=== PATIENT | male | born 1955 | race Caucasian/White ===

== ENCOUNTER → 2016-06-24 | Outpatient (CLI) | payer OTHER | END | disposition home or self-care (01) | CPT/HCPCS: 94060; 94726; 94729 ==

== ENCOUNTER → 2019-02-22 | Outpatient (CLI) | payer OTHER ==
--- NOTE | 2019-02-22 23:33 | CONS ---
CONSULTATION REASON FOR CONSULTATION: Sleep apnea. This is a 64-year-old morbidly obese male patient who works at [employer]; he does mainly computer work. Recently he has felt very tired and sleepy, to the point where he is having a hard time keeping himself awake and he is having some occasional sleep attacks. Based on all this, he came in for a sleep apnea evaluation. His sleep is fragmented. He has rheumatoid arthritis and chronic pain and arthralgia and he has also chronic dysthymia. In terms of his RA, he takes a combination of gabapentin and methotrexate, and for his dysthymia he takes Effexor 75 mg p.o. daily. He has gained a significant amount of weight over the years and he has features of obstructive sleep apnea, as the patient snores and his sleep is fragmented and he is occasionally waking up for choking and gasping sensation. He sleeps with his dogs. His has moved herself outside to another bedroom. He wakes up tired during the day. He falls asleep during the day. He has problems with memory and concentration. He goes to bed between 10 and 11 p.m. and wakes up between 5 and 5:30 a.m. in the morning. On weekends he wakes up at 7:00 in the morning. No restlessness in his lower extremities. PAST MEDICAL HISTORY: 1. Obesity. 2. RA. 3. Hypertension. 4. Dysthymia. PAST SURGICAL HISTORY: Past surgical history includes cholecystectomy and upper and lower GI endoscopy. DRUG ALLERGIES: NOT KNOWN. OUTPATIENT MEDICATION LIST: Outpatient medication list includes: 1. Effexor 75 mg p.o. daily. 2. Enalapril 10 mg p.o. daily. 3. Folic acid 1 tablet a day. 4. Methotrexate injections and gabapentin 2 capsules once a day; the dose is not known. SOCIAL HISTORY: The patient is a cigar smoker. He smokes around 40 cigars a week. No history of alcoholism. No history of IV drugs. FAMILY HISTORY: Positive for diabetes, coronary artery disease and CVA. Almost half of his family have cardiac disease; the other half has CVA. Diabetes throughout the majority of his family members. No history of any sleep breathing disorder or sleep apnea in the family. REVIEW OF SYSTEMS: Fourteen-point review of systems was done. Positive findings were all mentioned above in the history of present illness. He is snoring for now. No insomnia. No reported falling asleep while driving his car; however, he drives only short distances. There is positive history of weight gain on the order of 75 pounds over the past 10 years. He sleeps on his stomach. He takes naps any time he has a chance to do so. He takes typically around 3-4 naps a day, especially on weekends. No chest pain. No shortness of breath. No cough or sputum production. Chronic arthralgias. He has sexual dysfunction. PHYSICAL EXAMINATION: VITAL SIGNS: BP is 168/95, pulse 80, respirations 16, temperature 98.1, saturation 97% on room air. Neck size is inches. Height is 5 feet 7 inches. Weight is 358. BMI is 56. GENERAL APPEARANCE: Calm, comfortable. HEAD: Atraumatic, normocephalic. NECK: Supple. Short. There is crowding of the posterior pharynx. Mallampati class IV. No goiter or neck masses. LUNGS: Clear to auscultation. HEART: Heart sounds are regular rate and rhythm. Normal S1, S2. No S3, S4. No murmurs. ABDOMEN: Soft, nontender. No organomegaly. EXTREMITIES: No edema. No cyanosis or clubbing. NEUROLOGIC: Alert and oriented x3. No focal neurological deficits. PSYCHIATRIC: History of depression/dysthymia. IMPRESSION: 1. Chronic hypersomnia; Skandia score of 13 with high suspicion for obstructive sleep apnea. 2. Loud snoring. 3. Witnessed apneas. 4. Sleep fragmentation. 5. Rheumatoid arthritis. 6. Chronic pain. 7. Chronic dysthymic, on Effexor. 8. Hypertension. PLAN: 1. Encourage weight loss. 2. Optimize sleep hygiene measures. 3. Refrain from driving long distances, especially when feeling drowsy or sleepy. 4. Proceed with a screening polysomnogram to assess sleep quality and look for any significant sleep breathing disorder that may need to be treated. Will continue to follow. MMODL / IJN: [id number] /
== END | disposition home or self-care (01) ==
LOC: SLEEP 15:25
PROVIDERS: ATTEND Internal Medicine Critical Care Medicine
DX: G47.10 Hypersomnia, unspecified (principal); M06.9 Rheumatoid arthritis, unspecified; G89.29 Other chronic pain; F34.1 Dysthymic disorder; I10 Essential (primary) hypertension; Z79.899 Other long term (current) drug therapy
CPT/HCPCS: 99211

== ENCOUNTER → 2019-11-03 | Outpatient (CLI) | payer OTHER ==
--- NOTE | 2019-11-03 15:13 | XR ---
EXAMINATION TYPE: XR knee complete RT DATE OF EXAM: 11/03/2019 CLINICAL HISTORY: Pain after injury. TECHNIQUE: Three views of the right knee are obtained. COMPARISON: None. FINDINGS: There is no acute fracture/dislocation evident in right knee. Mild tricompartment joint sp nick loss. Increased density suprapatellar bursa suspicious for small joint effusion. IMPRESSION: There is no acute fracture or dislocation in the right knee.
== END | disposition home or self-care (01) ==
LOC: RADXRMAIN 14:49
PROVIDERS: ATTEND Family Medicine
DX: S89.91XA Unspecified injury of right lower leg, initial encounter (principal)

== ENCOUNTER → 2019-11-29 | Outpatient (CLI) | payer OTHER ==
--- NOTE | 2019-11-30 07:38 | MR ---
EXAMINATION TYPE: MR knee RT wo con DATE OF EXAM: 11/29/2019 COMPARISON: X-ray 11/18/2019 HISTORY: Right knee pain, twisting injury TECHNIQUE: Multiplanar, multisequence imaging of the right knee is performed without IV contrast. FINDINGS: Exam limited by artifact. MEDIAL MENISCUS: There is a complex tear involving the posterior horn of the medial meniscus. LATERAL MENISCUS: Anterior and posterior horns are intact without tear. CRUCIATE LIGAMENTS: The anterior and posterior cruciate ligaments are intact and unremarkable. COLLATERAL LIGAMENTS: There is edema surrounding the MCL compatible with strain. No through thickness tear. Lateral collateral ligament intact. EXTENSOR MECHANISM: Visualized quadriceps and patellar tendons are intact. Trace amount fluid in the suprapatellar bursa. EFFUSION: No significant suprapatellar joint effusion. POPLITEAL CYST: No popliteal/raymond cyst. TRICOMPARTMENT SPACES: There is narrowing of the medial compartment of the knee joint without evidenc e of erosive change. Grade II chondromalacia noted of the articular cartilage. BONE MARROW SIGNAL: Large area of abnormal marrow edema involving the distal femur medially measuring 5 cm. There is a flattening of the articular medial femoral condyle with a linear line suspicious fo r a osteochondral defect and macrotrabecular fracture. No free fragment. OTHER: There is diffuse subcutaneous edema. IMPRESSION: 1. Exam limited by artifact demonstrates a large area of marrow edema involving the distal medial fem ur standing the articular surface with findings suspicious for a impacted macrotrabecular fracture or osteochondral defect of the articular surface of the medial femoral condyle. 2. Complex posterior horn medial meniscal tear. 3. MCL sprain.
== END | disposition home or self-care (01) ==
LOC: RADMRIMAIN 18:37
PROVIDERS: ATTEND Orthopaedic Surgery
DX: R60.9 Edema, unspecified (principal); S83.241A Other tear of medial meniscus, current injury, right knee, initial encounter; S83.411A Sprain of medial collateral ligament of right knee, initial encounter

== ENCOUNTER → 2019-12-21 | Outpatient (CLI) | payer OTHER ==
[2019-12-21 15:04] LABS: Basophils # (A) 0.1 k/uL (0-0.2); Basophils % (A) 1 %; Eosinophils # (A) 0.3 k/uL (0-0.7); Eosinophils % (A) 4 %; HCT 46.7 % (39.0-53.0); HGB 14.4 gm/dL (13.0-17.5); Lymphocytes # (A) 1.9 k/uL (1.0-4.8); Lymphocytes % (A) 28 %; MCH 31.3 pg (25.0-35.0); MCHC 30.9 g/dL (31.0-37.0); MCV 101.4 fL (80.0-100.0); Macrocytosis Slight; Mean Platelet Volume 8.1; Monocytes # (A) 0.5 k/uL (0-1.0); Monocytes % (A) 8 %; Neutrophils % (A) 57 %; Platelet Count 212 k/uL (150-450); RDW 13.3 % (11.5-15.5); WBC 6.9 k/uL (3.8-10.6)
[2019-12-22 01:34] LABS: Anion Gap 4.7 mmol/L (4.00-12.00); Carbon Dioxide 29.3 mmol/L (21.6-31.8)
== END | disposition home or self-care (01) ==
LOC: LABWHC1 13:36
PROVIDERS: ATTEND Orthopaedic Surgery
DX: Z01.818 Encounter for other preprocedural examination (principal); M23.91 Unspecified internal derangement of right knee
CPT/HCPCS: 36415; 80051; 85025; 93005

== ENCOUNTER 2019-12-27 14:39 | Day surgery (SDC) | payer OTHER ==
--- NOTE | 2019-12-26 11:54 | HP ---
HISTORY AND PHYSICAL CHIEF COMPLAINT: Right knee pain. HISTORY OF PRESENT ILLNESS: The patient is a 64-year-old gentleman who presents with right knee pain after an injury on 10/07/2019. He is getting into his truck when he felt a pop. He notes pain ever since. He has tried an injection and medications without much relief. He is using a walker. PAST MEDICAL HISTORY: Significant for rheumatoid arthritis, depression, hypertension, and hypothyroidism. PAST SURGICAL HISTORY: Significant for previous right arm surgery, hernia repair, foot surgery and cholecystectomy. CURRENT MEDICATIONS: Enalapril, famotidine, gabapentin, methotrexate, tumeric. He denies drug allergies. FAMILY HISTORY: Significant for heart disease. SOCIAL HISTORY: Significant for tobacco use. 16 POINT REVIEW OF SYSTEMS: Otherwise reviewed and is noncontributory. PHYSICAL EXAMINATION: On examination, the patient is approximately 5 foot 10, 350 pounds of endomorphic habitus. HEENT exam is nonfocal. NECK: Supple. He has painless passive motion of the right hip. Straight leg raise is negative. Active motion right knee -10 to 105 degrees of flexion. He is tender about the medial joint line. He has mild effusion. Collaterals are stable, Zhane is negative, Daniel's elicits medial pain. He has an antalgic gait pattern. His distal neurovascular appears intact in the right lower extremity. MRI report right knee 11/29/2019 shows edema of the medial femoral condyle along with a posterior medial meniscal tear and possible osteochondral defect to the medial femoral condyle. IMPRESSION: 1. Right knee internal derangement with symptomatic medial meniscal tear. 2. History of rheumatoid arthritis. 3. Obesity. RECOMMENDATIONS: I talked to the patient at length regarding his condition and treatment options. At this point, he is having significant pain and mechanical symptoms despite attempted conservative measures. After thorough discussion, he opts to proceed with surgery. We will plan to proceed with arthroscopic evaluation with probable partial medial meniscectomy. We will likely perform that as an outpatient procedure. Risks and benefits were discussed at length in layman's terms. MMODL / IJN: [id number] /
[2019-12-26 12:00] VITALS: BMI 47.3
[~2019-12-27 14:39] MED LIST: ACETAMINOPHEN TAB 500 MG TAB PO ONE; DEXAMETHASONE SOD PHOSPHATE 10 MG/ML 1 ML VIAL IV ONE; HYDROmorphone 0.5 MG/0.5 ML SYRINGE IVP PRN; LACTATED RINGERS 1,000 ML IV SCH; LIDOCAINE 1% (10MG/ML) FOR IV START INTRADERMA PRN; MELOXICAM 7.5 MG TAB PO ONE; MIDAZOLAM 2 MG/2 ML VIAL IV PRN; ONDANSETRON 4 MG/2 ML VIAL IVP ONE; Pre Op ABX Message 1 EACH MISC MISCELLANE ONE; TRANEXAMIC ACID 1,000 MG in SODIUM CHLORIDE 0.9% 100 ML IVPB ONE; fentaNYL (PF) 50 MCG/ML 2 ML AMP IV PRN
[2019-12-27] MEDS ORDERED: ONDANSETRON 4 MG/2 ML VIAL ONE (16:02)
[2019-12-27 16:10] VITALS: TEMP 98.4
[2019-12-27] MEDS ORDERED: LIDOCAINE 1% INJ 10MG/ML (20 ML MDV) ONE (16:10)
[2019-12-27] MEDS ORDERED: SUCCINYLCHOLINE CHLORIDE 100 MG/5 ML SYR IV ONE (16:10)
[2019-12-27] MEDS ORDERED: fentaNYL (PF) 50 MCG/ML 2 ML AMP ONE (16:10)
[2019-12-27] MEDS ORDERED: PROPOFOL 10 MG/ML 20 ML VIAL IV ONE (16:10)
[2019-12-27] MEDS ORDERED: MIDAZOLAM 2 MG/2 ML VIAL ONE (16:10)
[2019-12-27] MEDS ORDERED: EPINEPHrine (PF) 1 ML in SODIUM CHLORIDE 0.9% IRRIGATIO 3,000 ML IRRIGATION ONE ×4 (16:36)
--- NOTE | 2019-12-27 17:11 | P.OP ---
Date of Procedure: 12/27/19 Preoperative Diagnosis: Internal derangement right knee Postoperative Diagnosis: Right knee posterior medial meniscal tear/reactive synovitis of the medial, lateral, and patellofemoral compartments. Procedure(s) Performed: Right knee arthroscopic partial medial meniscectomy/partial synovectomy of the medial, lateral, and patellofemoral compartments. Anesthesia: LOUIS Surgeon: Lorenzo Denis Estimated Blood Loss (ml): 10 Pathology: none sent Condition: stable Disposition: PACU Indications for Procedure: The patient's a 64-year-old male who presents with progressive right knee pain and mechanical symptoms after a previous twisting injury. A discussion of the risks and benefits of operative intervention versus continued conservative measures was made with the patient. He opted proceed with surgery. Operative risks to include infection, neurovascular injury, development of blood clots, possible incomplete resolution of symptoms, possible worsening symptoms and need for subsequent procedures was discussed. Informed consent was obtained. Operative Findings: As below Description of Procedure: The patient was brought to the operating room, and after induction of general anesthesia examined the right knee. Collaterals were stable, Zhane was negative, and posterior drawer was negative. The right lower extremity was prepped and draped in a normal fashion. A superior lateral portal was made through a 3 mm skin incision superior and lateral to the patella. This was used for outflow. A lateral portal was made through a 5 mm vertical skin incision lateral to the patella tendon above the joint line. Diagnostic arthroscopy was performed. On inspection of the medial compartment, a complex tear involving the posterior horn medial meniscus was noted in the white-red junction. This was debrided back to stable base with straight baskets and a motorized shaver. A corresponding grade 2 chondral injury was noted involving the posterior lateral portion medial femoral condyle. A loose chondral fragment was debrided back to stable base with a motorized shaver. Reactive synovitis involving the anterior medial compartment was debrided with a motorized shaver. On inspection of the notch, the anterior cruciate ligament appeared to be intact. On inspection of the lateral compartment, no definite meniscal pathology was noted. Reactive synovitis involving the anterolateral compartment was debrided with motorized shaver. On inspection of the patellofemoral articulation, there is chondral fibrillation however no loose chondral fragments. Reactive synovitis involving patellofemoral articulation was debrided with a motorized shaver.. The gutters were clear debris. The knee was then thoroughly irrigated. The portals were closed with Steri-Strips. A sterile dressing was applied in glenn tion to a compression stocking. The patient was awoken from general anesthesia and transferred to recovery room in good condition. Blood loss was estimated at 10 mL. No complications were incurred.
[2019-12-27] MEDS ORDERED: HYDROmorphone 1 MG/ML 1 ML SYRINGE IVP ONE ×2 (17:29→17:35)
[2019-12-27] MEDS ORDERED: LABETALOL 5 MG/ML VIAL MDV IVP ONE (17:49)
[2019-12-27 17:51] VITALS: RESP 16
[2019-12-27] MEDS ORDERED: LACTATED RINGERS 1,000 ML IV ONE (17:56)
[2019-12-27 18:15] VITALS: BP 151/82; PULSE 70
== END 2019-12-27 18:30 | disposition home or self-care (01) ==
LOC: OR 14:39
PROVIDERS: ATTEND Orthopaedic Surgery
DX: S83.241A Other tear of medial meniscus, current injury, right knee, initial encounter (principal); M65.861 Other synovitis and tenosynovitis, right lower leg; S89.81XA Other specified injuries of right lower leg, initial encounter; M06.9 Rheumatoid arthritis, unspecified; F32.9 Major depressive disorder, single episode, unspecified; I10 Essential (primary) hypertension; E03.9 Hypothyroidism, unspecified; J44.9 Chronic obstructive pulmonary disease, unspecified; K21.9 Gastro-esophageal reflux disease without esophagitis; F17.200 Nicotine dependence, unspecified, uncomplicated; E66.9 Obesity, unspecified; Z68.42 Body mass index [BMI] 45.0-49.9, adult; Z98.890 Other specified postprocedural states; Z88.5 Allergy status to narcotic agent; Z90.49 Acquired absence of other specified parts of digestive tract; Z87.19 Personal history of other diseases of the digestive system; Z79.899 Other long term (current) drug therapy; Z87.442 Personal history of urinary calculi; Z82.49 Family history of ischemic heart disease and other diseases of the circulatory system; X50.1XXA Overexertion from prolonged static or awkward postures, initial encounter; V48.4XXA Person boarding or alighting a car injured in noncollision transport accident, initial encounter
CPT/HCPCS: 29881; 29876; J1100; J2405; J0171; J1170

== ENCOUNTER → 2023-02-06 | Outpatient (CLI) | payer MEDICARE ==
[2023-02-06 11:26] LABS: African American GFR (CKD) 68 (>60 ml/min/1.73 sqM); Anion Gap 7 mmol/L; Blood Urea Nitrogen 22 mg/dL (9-20); Calcium 9.2 mg/dL (8.4-10.2); Carbon Dioxide 29 mmol/L (22-30); Chloride 103 mmol/L (98-107); Glucose 107 mg/dL (74-99); Non-African American GFR(CKD) 59 (>60 ml/min/1.73 sqM); Potassium 3.9 mmol/L (3.5-5.1); Sodium 139 mmol/L (137-145)
[2023-02-06 11:54] LABS: Basophils % (A) 1 %; Eosinophils # (A) 0.3 k/uL (0-0.7); Eosinophils % (A) 4 %; HCT 44.6 % (39.0-53.0); HGB 14.9 gm/dL (13.0-17.5); Lymphocytes # (A) 1.8 k/uL (1.0-4.8); Lymphocytes % (A) 27 %; MCHC 33.3 g/dL (31.0-37.0); Mean Platelet Volume 8.1; Monocytes # (A) 0.3 k/uL (0-1.0); Monocytes % (A) 5 %; Neutrophils % (A) 61 %; Platelet Count 210 k/uL (150-450); RBC 4.65 m/uL (4.30-5.90); RDW 12.3 % (11.5-15.5); WBC 6.5 k/uL (3.8-10.6)
[2023-02-06 12:53] LABS: T4, Free (Free Thyroxine) 1.32 ng/dL (0.78-2.19)
--- NOTE | 2023-02-06 17:47 | CT ---
EXAMINATION TYPE: CT brain wo/w con DATE OF EXAM: 02/06/2023 COMPARISON: None INDICATION: Right sided posterior neck pain and headaches. DLP: 2507.6 mGycm, Automated exposure control for dose reduction was used. CONTRAST: 100 mL Isovue-300 CT of the brain is performed utilizing 3 mm thick sections through the posterior fossa and 3 mm thick sections through the remaining calvarium. Study is performed within 24 hours of arrival to the hosp [facility]. No abnormal hyperdensity is present to suggest an acute intracranial hemorrhage. No mass lesion is evident. No acute infarcts are evident. Patchy periventricular white matter hypodensity is present, likely on the basis of chronic white matter ischemic changes. Ventricles and sulci are appropriate for the patient age. Note is made of a patent cavum septum chace dum and cavum vergae, normal variants. There is a small retention cyst within the right maxillary sinus. Some opacification of the anterior right ethmoid air cell is present. Remaining paranasal sinuses and mastoid air cells are clear. Following the intravenous administration of contrast, no abnormal enhancement is evident. IMPRESSIONS: 1. Chronic appearing periventricular white matter ischemic type changes. 2. No suspicious enhancement. 3. No acute intracranial process. Follow-up MRI can be performed as clinically indicated
[2023-02-07 00:57] LABS: Chol/HDL Ratio 3.09 Ratio; LDL Cholesterol,Calculated 78.9 mg/dL (0.0-131.0); VLDL Calculation 13.84 mg/dL (5.00-40.00)
== END | disposition home or self-care (01) ==
LOC: RADCTMAIN 10:29
PROVIDERS: ATTEND Family Medicine
DX: I67.82 Cerebral ischemia (principal); R29.818 Other symptoms and signs involving the nervous system
CPT/HCPCS: 84439; 80061; 80048; 84443; 82607; 85025; 70470; 36415; Q9967

== ENCOUNTER → 2023-03-04 | Outpatient (CLI) | payer MEDICARE ==
--- NOTE | 2023-03-05 08:52 | CA ---
Transthoracic Echo Report Name: Kevin Brush Age: 68 Gender: M : 1955 Exam Date: 03/04/2023 15:12 Exam Location: [facility] Ht (in): 69 Wt (lb): 305 Ordering Physician: Bro Dumont MD Attending/Referring Phys: Senior Cost Analyst Cassandra Little [facility] Procedure CPT: Indications: R29.818 FOCAL NEUROLOGICAL DEFICIT Cardiac Hx: Technical Quality: Fair Contrast 1: Total Dose (mL): Contrast 2: Total Dose (mL): MEASUREMENTS (Male / Female) Normal Values 2D ECHO LV Diastolic Diameter PLAX 4.9 cm 4.2 - 5.9 / 3.9 - 5.3 cm LV Systolic Diameter PLAX 3.1 cm IVS Diastolic Thickness 1.2 cm 0.6 - 1.0 / 0.6 - 0.9 cm LVPW Diastolic Thickness 1.1 cm 0.6 - 1.0 / 0.6 - 0.9 cm LV Relative Wall Thickness 0.5 LVOT Diameter 2.0 cm Ascending Aorta Diameter 3.9 cm M-MODE Aortic Root Diameter MM 3.3 cm LA Systolic Diameter MM 6.0 cm LA Ao Ratio MM 1.8 AV Cusp Separation MM 1.5 cm DOPPLER AV Peak Velocity 192.4 cm/s AV Peak Gradient 14.8 mmHg AV Mean Velocity 143.9 cm/s AV Mean Gradient 9.1 mmHg AV Velocity Time Integral 43.5 cm LVOT Peak Velocity 108.4 cm/s LVOT Peak Gradient 4.7 mmHg LVOT Velocity Time Integral 23.2 cm LVOT Stroke Volume 76.5 cm??? LVOT Stroke Volume Index 31.0 ml/m??? LVOT Cardiac Index 1865.5 cm???/min???m??? AV Area Cont Eq vti 1.8 cm??? AV Area Cont Eq pk 1.9 cm??? Mitral E Point Velocity 47.2 cm/s Mitral A Point Velocity 66.0 cm/s Mitral E to A Ratio 0.7 MV Deceleration Time 147.9 ms LV E' Lateral Velocity 8.9 cm/s Mitral E to LV E' Lateral Ratio 5.3 LV E' Septal Velocity 7.5 cm/s Mitral E to LV E' Septal Ratio 6.3 Right Atrial Pressure 3.0 mmHg FINDINGS Left Ventricle Mildly increased left ventricular wall thickness. Left ventricular cavity size normal. Normal left ventricular systolic function with no obvious regional wall motion abnormalities. Left ventricular ejection fraction is estimated at 55- 60%. Right Ventricle Mild right ventricular dilatation. Right Atrium Moderate right atrial dilatation. Left Atrium Moderate left atrial dilatation. Mitral Valve Structurally normal mitral valve. Mild mitral regurgitation. Aortic Valve Trileaflet aortic valve. Thickening of the aortic valve cusps. Aortic valve sclerosis. Trace aortic regurgitation. Tricuspid Valve Structurally normal tricuspid valve. No tricuspid regurgitation. Pulmonic Valve Pulmonic valve not well visualized.trace pulmonic regurgitation. Pericardium No pericardial effusion. Aorta Normal size aortic root and mildly dilated proximal ascending aorta. CONCLUSIONS 1. Normal left ventricular size and systolic function 2. Mild mitral regurgitation 3. Trace aortic regurgitation Previewed by: Dr. Chandni Morel MD (Electronically Signed) Final Date: 05 March 2023 08:51
--- NOTE | 2023-03-05 12:45 | US ---
EXAMINATION TYPE: US carotid duplex BILAT DATE OF EXAM: 03/04/2023 COMPARISON: NONE CLINICAL INDICATION: Male, 68 years old with history of R29.818 OTHER SYMPTOMS AND SIGNS INVOLVING TH E NER; pain rt trapezius, concern of stroke TECHNIQUE: Carotid duplex ultrasound examination. Indirect Doppler criteria was utilized. FINDINGS: EXAM MEASUREMENTS: RIGHT: Peak Systolic Velocity (PSV) cm/sec ----- Right CCA: 73.6 ----- Right ICA: 81.4 ----- Right ECA: 116 ICA/CCA ratio: 1.1 RIGHT: End Diastole cm/sec ----- Right CCA: 19.0 ----- Right ICA: 30.9 ----- Right ECA: 19.6 LEFT: Peak Systolic Velocity (PSV) cm/sec ----- Left CCA: 63.0 ----- Left ICA: 83.7 ----- Left ECA: 105.0 ICA/CCA ratio: 1.3 LEFT: End Diastole cm/sec ----- Left CCA: 22.0 ----- Left ICA: 27.9 ----- Left ECA: 17.8 VERTEBRALS (direction of flow): Right Vertebral: Antegrade Left Vertebral: Antegrade Rhythm: Normal CHINESE TEACHER NOTES: exam technically difficult due to heavy breathing, and deep tortuous vessels RT bulb plaque. LT mid/dist CCA, bulb plaque IMPRESSION: 1. Atheromatous plaquing without significant flow-limiting stenosis based on velocities. Criteria for Assigning % of Stenosis / Diameter reduction (Estimation based on the indirect measurements of the internal carotid artery velocities (ICA PSV). 1. Normal (no stenosis)=ICA PSV < 125 cm/s: ratio < 2.0: ICA EDV<40 cm/s. 2. Less than 50% stenosis=ICA PSV < 125 cm/s: ratio < 2.0: ICA EDV<40 cm/s. 3. 50 to 69% stenosis=ICA PSV of 125 to 230 cm/s: ration 2.0 ? 4.0: ICA EDV 40-100 cm/s. 4. Greater than 70% stenosis to near occlusion= ICA PSV > 230 cm/s: ratio > 4.0: ICA EDV > 100 cm/s. 5. Near occlusion= ICA PSV velocities may be low or undetectable: variable ratio and ICA EDV. 6. Total occlusion=unable to detect flow.
== END | disposition home or self-care (01) ==
LOC: RADUSWWP 14:23
PROVIDERS: ATTEND Family Medicine
DX: M06.9 Rheumatoid arthritis, unspecified (principal); M54.16 Radiculopathy, lumbar region; G56.03 Carpal tunnel syndrome, bilateral upper limbs; J44.9 Chronic obstructive pulmonary disease, unspecified; K21.9 Gastro-esophageal reflux disease without esophagitis; I34.0 Nonrheumatic mitral (valve) insufficiency; I35.1 Nonrheumatic aortic (valve) insufficiency; I37.1 Nonrheumatic pulmonary valve insufficiency; R29.818 Other symptoms and signs involving the nervous system
CPT/HCPCS: 93306; 93880

== ENCOUNTER → 2023-04-15 | Outpatient (CLI) | payer MEDICARE ==
--- NOTE | 2023-04-16 19:04 | NM ---
EXAMINATION TYPE: NM thyroid image w uptake DATE OF EXAM: 04/16/2023 COMPARISON: NONE CLINICAL INDICATION: Male, 68 years old with history of E05.90 THYROTOXICOSIS,; TECHNIQUE: Thyroid iodine uptake is calculated and images performed after the oral administration of 316 uCi 1-123 Capsule. FINDINGS: There is normal distribution of activity throughout the gland. The 4 hour iodine uptake is calculated at 6.9% (normal range 8-14%). The 24-hour iodine uptake is calculated at 16.6% (normal ra nge 15-35%). IMPRESSION: Thyroid uptake at 4 hours slightly below the normal range at 6.9 and within the normal ra nge at 24 hours. Findings suggestive of the euthyroid.
== END | disposition home or self-care (01) ==
LOC: RADNMMAIN 08:42
PROVIDERS: ATTEND Family Medicine
DX: E05.90 Thyrotoxicosis, unspecified without thyrotoxic crisis or storm (principal)
CPT/HCPCS: 78014; A9516

== ENCOUNTER → 2025-01-13 | Outpatient (CLI) | payer MEDICARE ==
--- NOTE | 2025-01-13 20:50 | CA ---
Transthoracic Echo Report Name: Kevin Brush Age: 70 Gender: M : 1955 Exam Date: 01/13/2025 13:08 Exam Location: [facility] Ht (in): 70 Wt (lb): 310 Ordering Physician: Noel Villalobos MD Attending/Referring Phys: Noel Villalobos MD Interviewing Clerk Basilio Cortes RDCS Procedure CPT: Indications: R07.9 CHEST PAIN Cardiac Hx: Technical Quality: Technically difficult study Contrast 1: Definity Total Dose (mL): 2 Contrast 2: Total Dose (mL): MEASUREMENTS (Male / Female) Normal Values 2D ECHO LV Diastolic Diameter PLAX 4.8 cm 4.2 - 5.9 / 3.9 - 5.3 cm LV Systolic Diameter PLAX 3.2 cm IVS Diastolic Thickness 1.1 cm 0.6 - 1.0 / 0.6 - 0.9 cm LVPW Diastolic Thickness 1.1 cm 0.6 - 1.0 / 0.6 - 0.9 cm LV Relative Wall Thickness 0.4 RV Internal Dim ED PLAX 3.6 cm LA Systolic Diameter LX 4.1 cm 3.0 - 4.0 / 2.7 - 3.8 cm LV Diastolic Volume MOD BP 92.1 cm??? 67 - 155 / 56 - 104 cm??? LV Systolic Volume MOD BP 29.4 cm??? 22 - 58 / 19 - 49 cm??? LV Ejection Fraction MOD BP 68.0 % >= 55 % LV Cardiac Index MOD BP 1598.9 cm???/min???m??? LV Diastolic Volume MOD 4C 81.8 cm??? LV Systolic Volume MOD 4C 23.4 cm??? LV Ejection Fraction MOD 4C 71.4 % LV Cardiac Index MOD 4C 1489.0 cm???/min???m??? LV Diastolic Length 4C 7.1 cm LV Systolic Length 4C 6.3 cm LV Diastolic Volume MOD 2C 85.5 cm??? LV Systolic Volume MOD 2C 30.8 cm??? LV Ejection Fraction MOD 2C 64.0 % LV Cardiac Index MOD 2C 1396.8 cm???/min???m??? LV Diastolic Length 2C 8.7 cm LV Systolic Length 2C 7.7 cm LA Volume 43.3 cm??? 18 - 58 / 22 - 52 cm??? LA Volume Index 16.0 cm???/m??? 16 - 28 cm???/m??? DOPPLER MV Area PHT 2.7 cm??? Mitral E Point Velocity 58.1 cm/s Mitral A Point Velocity 82.9 cm/s Mitral E to A Ratio 0.7 MV Deceleration Time 281.4 ms FINDINGS Left Ventricle Left ventricular ejection fraction is estimated at 60-65 %. Normal left ventricular systolic function with no obvious regional wall motion abnormalities. Mild concentric left ventricular hypertrophy. Left ventricular cavity size normal. Right Ventricle Mild right ventricular dilatation. Unable to estimate the right ventricular systolic pressure. Right Atrium Normal right atrial size. Left Atrium Normal left atrial size. Mitral Valve Structurally normal mitral valve. No mitral stenosis. Trace mitral regurgitation. Aortic Valve Trileaflet aortic valve. Diffuse thickening (sclerosis) of the aortic valve cusps without reduced excursion. No aortic stenosis. Trace aortic regurgitation. Tricuspid Valve Structurally normal tricuspid valve. No tricuspid stenosis. Trace tricuspid regurgitation. Pulmonic Valve Pulmonic valve not well visualized. No pulmonic stenosis. No pulmonic regurgitation. Pericardium No pericardial effusion. Aorta Aortic annulus normal. Mildly dilated proximal ascending aorta (tube). CONCLUSIONS Technically difficult study. LVEF 60% No obvious regional wall motion abnormality RV appears mildly dilated. Normal systolic function Sclerotic aortic valve. Major valve dysfunction appreciated Previewed by: Dr Raymond Person (Electronically Signed) Final Date: 13 January 2025 20:49
--- NOTE | 2025-01-13 20:52 | CA ---
Exercise Stress Test Report Name: Kevin Brush Exam Date: 01/13/2025 11:33 Exam Location: [facility] Ht (in): 70 Wt (lb): 300 BSA: 2.48 Ordering Phys: Noel Villalobos MD Referring Phys: Noel Villalobos MD Technologist: Nura Belle Age: 70 Gender: M : 1955 Procedure CPT: Indications: R07.9 CHEST PAIN ICD-10 Codes: Patient History: Medications: Meds past 24 hrs: Pretest Chest Pain: STRESS TEST [place] Protocol Exercise Duration (min:sec): 02:[address] Depressions (mm): Angina Score: Chavez Score: Resting HR (bpm): 106 Peak HR (bpm): 131 Resting BP (mmHg): 117 / 87 Peak BP (mmHg): 173 / 79 MPHR: 149 Target HR: 127 % MPHR: 88 METS: 4.7 Total Dose: Peak Dose: Atropine: Double Product: 19020 BP Response: Stress Termination: Reached target heart rate Stress Symptoms: No chest pain or symptoms Stress Summary: ECG ANALYSIS Resting ECG: Normal sinus rhythm Stress ECG: No evidence of ischemia by ST segment analysis. No sustained arrhythmias or ectopic beats CONCLUSIONS Poor exercise tolerance for age achieving only 4.7 METS Nonischemic ECG response to treadmill exercise Normal hemodynamic and clinical response to treadmill exercise Dr Raymond Person (Electronically Signed) Final Date: 13 January 2025 20:51
== END | disposition home or self-care (01) ==
LOC: RADNMMAIN 11:05
DX: I07.1 Rheumatic tricuspid insufficiency (principal); I34.0 Nonrheumatic mitral (valve) insufficiency
CPT/HCPCS: 93017; C8929; 93306

== ENCOUNTER → 2025-01-17 | Outpatient (CLI) | payer MEDICARE ==
--- NOTE | 2025-01-17 11:37 | MM ---
Reason for Exam: Clinical finding. Indicated Problems: Pain of both sides (Focal) for 3 Month(s). Tissue Density: The breasts are almost entirely fatty. Findings: Analyzed By CAD. Bilateral subareolar flame-shaped density. No significant mass, suspicious microcalcification, or other discrete abnormality is seen. Overall Assessment: Benign, BI-RAD 2 Management: Clinical Management of both breasts. For the bilateral benign, fairly symmetric gynecomastia. Correlate as to possible causes in this patient. Results were given to the patient verbally at the time of exam. Patient should continue monthly self-breast exams. A clinical breast exam by your physician is recommended on an annual basis. This exam should not preclude additional follow-up of suspicious palpable abnormalities. [facility], , 01/17/2025 11:34 AM. Electronically signed and approved by: Kayli Cruz M.D. Radiologist
== END | disposition home or self-care (01) ==
LOC: RADMAMWWP 11:04
DX: R92.313 Mammographic fatty tissue density, bilateral breasts (principal); N64.4 Mastodynia
CPT/HCPCS: 77066; G0279; 77062